=== PATIENT | female | born 1950 | race Caucasian/White ===

== ENCOUNTER 2017-02-10 15:47 | Inpatient (IN) | payer MEDICARE ==
[~2017-02-10] VITALS: Ht 152.4 cm; Wt 60.3 kg
--- NOTE | 2017-02-10 16:33 | NUR ---
urine collected and sent to lab. pt is sitting in bed awaiting to be seen by .
[2017-02-10 17:49] LABS: *BILIRUBIN,URIN NEGATIVE (NEGATIVE); *BLOOD, URINE Trace-intact (NEGATIVE); *CLARITY,URINE SLIGHTLY CLOUDY (CLEAR); *COLOR,URINE YELLOW (YELLOW); *KETONES,URINE 1+ (NEGATIVE); *PROTEIN,URINE TRACE (NEGATIVE); *UROBILINOGEN,URINE 0.2 E.U./dl (NORMAL); LEUKOCYTE ESTERASE ,URINE TRACE (NEGATIVE); NITRITE, URINE NEGATIVE (NEGATIVE); PH,URINE 6.5 (5.0-8.0); UGLUCOSE NEGATIVE (NEGATIVE)
--- NOTE | 2017-02-10 17:50 | NUR ---
Dr Fabian at the bedside for eval and exam.
[2017-02-10 17:58] LABS: BACTERIA,URINE FEW /HPF (NONE SEEN); RBC,URINE 0-3 /HPF (0-3); SQUAMOUS EPITHELIAL CELL,UR FEW /HPF (NONE SEEN)
[2017-02-10] MEDS ORDERED: IV NORMAL SALINE 1000 ML BAG IV ONE (18:00)
[2017-02-10 18:23] LABS: BASOPHILS % (AUTO) 0.6 % (0.0-2.0); HEMATOCRIT 43.8 % (37-47); HEMOGLOBIN 14.9 G/DL (12.0-16.0); LYMPHOCYTES # (AUTO) 0.4 K/UL (0.8-4.8); LYMPHOCYTES % (AUTO) 5.1 % (20.5-51.5); MEAN CORPUSCULAR HEMOGLOBIN 29.2 UUG (27.0-31.0); MEAN CORPUSCULAR HGB CONC 34 g/dL (32.0-37.0); MONOCYTES # (AUTO) 0.1 K/UL (0.1-1.30); MONOCYTES % (AUTO) 1.1 % (0.0-11.0); NEUTROPHILS # (AUTO) 7.2 K/UL (1.8-8.9); NEUTROPHILS % (AUTO) 93.2 % (38.5-71.5); PLATELET COUNT (AUTO) 232 K/UL (150-450); WHITE BLOOD COUNT (AUTO) 7.7 K/UL (4.0-11.2)
--- NOTE | 2017-02-10 18:43 | NUR ---
pt signed consent for CT contrast, placed in the chart.
[2017-02-10 18:44] LABS: BILIRUBIN,DIRECT 0.1 mg/dL (0.0-0.2); BILIRUBIN,TOTAL 0.5 mg/dL (0.2-1.0); CREATININE 0.7 mg/dL (0.6-1.3); POTASSIUM 3.6 mmol/L (3.5-5.1); TOTAL PROTEIN, SERUM 7.8 g/dL (6.4-8.2)
--- NOTE | 2017-02-10 19:09 | NUR ---
Care indurced to Kateryna DYKES.
--- NOTE | 2017-02-10 19:18 | NUR ---
Received report from JANIA Roldan. Assumed care of pt at this time. Dr. Arizmendi at bedside.
[2017-02-10] MEDS ORDERED: NORMAL SALINE FLUSH 10 ML DISP.SYRIN ONE (19:35)
[2017-02-10] MEDS ORDERED: IOHEXOL 350 100 ML INFUS..BTL ONE (19:35)
[2017-02-10] MEDS ORDERED: IV NORMAL SALINE 250 ML IV ONE (19:35)
--- NOTE | 2017-02-10 20:05 | NUR ---
Pt returned from CT. Pt resting in position of comfort for self. No complaints at this time.
--- NOTE | 2017-02-10 21:46 | NUR ---
Pt c/o headache and requesting tylenol. notified. Awaiting further orders.
[2017-02-10] MEDS ORDERED: ACETAMINOPHEN ES 500 MG TABLET PO ONE (22:00)
[2017-02-10] MEDS ORDERED: ACETAMINOPHEN ES 500 MG TABLET ONE (22:08)
--- NOTE | 2017-02-10 22:26 | NUR ---
Otoniel MANZANARES paged for Dr. Arizmendi for possible admission.
--- NOTE | 2017-02-10 23:33 | NUR ---
Report called to JANIA Mayes. Preparing to transfer pt to the floor.
[2017-02-11] VITALS (7 sets, daily range): BP systolic 118–139; BP diastolic 58–65
--- NOTE | 2017-02-11 00:05 | NUR ---
admitted new patient from ER, patient is alert, oriented x 4, ambulatory,in no acute distress,denies chest pain at present times, NSR on monitor, no nausea noted,oriented patient to room,call light in reach
[2017-02-11] MEDS ORDERED: MAGNESIUM HYDROXIDE 30 ML LIQUID UDC PO PRN (01:15)
[2017-02-11] MEDS ORDERED: ONDANSETRON 4 MG/2 ML VIAL IV PRN (01:15)
[2017-02-11] MEDS ORDERED: ENOXAPARIN SODIUM 40 MG/0.4 ML DISP.SYRIN SQ SCH ×3 (01:15→21:00)
[2017-02-11] MEDS ORDERED: ACETAMINOPHEN 325 MG TABLET PO PRN (01:15)
[2017-02-11] MEDS ORDERED: Z GUARD REMEDY PASTE 57 GM TUBE TOP PRN (01:15)
[2017-02-11] MEDS ORDERED: ZOLPIDEM 5 MG TABLET PO PRN (01:15)
[2017-02-11] MEDS ORDERED: HYDROCODONE/APAP 5-325MG TABLET PO PRN (01:15)
[2017-02-11] MEDS ORDERED: ENOXAPARIN SODIUM 40 MG/0.4 ML DISP.SYRIN SQ ONE (01:35)
[2017-02-11] MEDS ORDERED: IV 0.9% SODIUM CHLORID+ 20 KCL 1,000 ML IV SCH (01:45)
[2017-02-11] MEDS ORDERED: CEFTRIAXONE 1 G VIAL ONE (02:25)
[2017-02-11] MEDS: CEFTRIAXONE 1 G in IV DEXTROSE 5% 50 ML IV SCH (03:01)
[2017-02-11] MEDS: PANTOPRAZOLE SODIUM 40 MG TABLET.DR PO SCH (08:32)
[2017-02-11] MEDS: IV 0.9% SODIUM CHLORID+ 20 KCL 1,000 ML IV PRN (08:33)
--- NOTE | 2017-02-11 14:32 | NUR ---
TEXTED DR. UNDERWOOD FOR MRI APPROVAL.
--- NOTE | 2017-02-11 18:00 | NUR ---
Pt received TLSO brace, MRI done. Pt tolerated mri. Pt denies any c/o pain. Pt is in no acute distress.
[2017-02-12] MEDS: CEFTRIAXONE 1 G in IV DEXTROSE 5% 50 ML IV SCH (01:38)
[2017-02-12 04:00] VITALS: BP 113/59
[2017-02-12] MEDS: PANTOPRAZOLE SODIUM 40 MG TABLET.DR PO SCH (06:08)
--- NOTE | 2017-02-12 06:25 | NUR ---
PATIENT SLEEP WELL THROUGH THE NIGHT,NO ACUTE CHANGE ,NSR ON MONITOR,PLAN OF CARE EXPLAINED TO PATIENT, TO USE TLSO BRACE WHEN GET UP WITH P.T.,VITAL SIGNS STABLE, PATIENT DENIES PAIN .
[2017-02-12 07:04] LABS: BASOPHILS % (AUTO) 0.5 % (0.0-2.0); EOSINOPHILS # (AUTO) 0.1 K/uL (0.0-0.7); EOSINOPHILS % (AUTO) 3.8 % (0.0-7.0); HEMATOCRIT 40.5 % (37-47); HEMOGLOBIN 13.6 G/DL (12.0-16.0); LYMPHOCYTES # (AUTO) 1.3 K/UL (0.8-4.8); LYMPHOCYTES % (AUTO) 36.5 % (20.5-51.5); MEAN CORPUSCULAR HEMOGLOBIN 29.3 UUG (27.0-31.0); MEAN CORPUSCULAR HGB CONC 34 g/dL (32.0-37.0); MEAN CORPUSCULAR VOLUME 86.9 FL (81.0-99.0); MONOCYTES # (AUTO) 0.4 K/UL (0.1-1.30); MONOCYTES % (AUTO) 9.6 % (0.0-11.0); NEUTROPHILS # (AUTO) 1.9 K/UL (1.8-8.9); NEUTROPHILS % (AUTO) 49.6 % (38.5-71.5); PLATELET COUNT (AUTO) 228 K/UL (150-450); RED BLOOD CELL COUNT(AUTO) 4.66 MIL/UL (4.2-5.4)
[2017-02-12 07:16] LABS: CREATININE 0.7 mg/dL (0.6-1.3); MAGNESIUM 2.2 mg/dL (1.8-2.4); PHOSPHOROUS 3.4 mg/dL (2.5-4.9); POTASSIUM 3.6 mmol/L (3.5-5.1)
[2017-02-12 07:21] LABS: WHITE BLOOD COUNT (AUTO) 3.7 K/UL (4.0-11.2)
[2017-02-12 12:15] VITALS: BP 138/76
[2017-02-12] MEDS: IV 0.9% SODIUM CHLORID+ 20 KCL 1,000 ML IV PRN (13:29)
--- NOTE | 2017-02-12 14:45 | NUR ---
discharge note: PT IS READY TO BE D/C. IV IS REMOVED. EDUCATION PROVIDED, CONTACT NUMBER OF KAL LEWIS NP IS GIVEN TO THE PT IN CASE IF THE PT HAS ANY QUESTIONS IN REGARDS OF THE BRACE. EDUCATION IS PROVIDED. PT LEFT WITH FRIEND VIA PRIVATE CAR, VS STABLE.
== END 2017-02-12 15:15 | disposition home or self-care (01) | DRG 392 ==
LOC: ER 15:48 → TELE 23:06 → MED 02-12 11:31
DX: A08.4 Viral intestinal infection, unspecified (principal); M84.48XA Pathological fracture, other site, initial encounter for fracture; N39.0 Urinary tract infection, site not specified; B96.89 Other specified bacterial agents as the cause of diseases classified elsewhere; G43.909 Migraine, unspecified, not intractable, without status migrainosus; R07.89 Other chest pain; M19.90 Unspecified osteoarthritis, unspecified site
CPT/HCPCS: 36415; 70030-TC; 70450; 71010; 71275; 83735; 84100; 85025; 85730; 87086; 93005; 93307; A4663; J0696; J1650; J3490; J7030; J7050; J7060; Q9967